=== PATIENT | male | born 1970 | race Native Hawaiian/Other Pacific Islander ===

== ENCOUNTER 2016-12-20 09:49 | Emergency (ER) | payer BC ==
[~2016-12-20] VITALS: Ht 175.3 cm; Wt 116.1 kg
[2016-12-20 10:00] VITALS: TEMP 98.4
[2016-12-20] MEDS ORDERED: AMOX500T5 PO (10:22)
[2016-12-20] MEDS ORDERED: TRAM50TA PO (10:23)
[2016-12-20 11:33] LABS: PLATELET COUNT 259 K/uL (142-355)
[2016-12-20 11:36] LABS: POTASSIUM 3.7 mmol/L (3.6-5.2); SODIUM 134 mmol/L (136-145)
[2016-12-20 13:00] VITALS: BP 160/88
== END 2016-12-20 13:15 | disposition home or self-care (01) ==
LOC: ED 09:49
PROVIDERS: Family Medicine
DX: J34.0 Abscess, furuncle and carbuncle of nose (principal); H00.035 Abscess of left lower eyelid; I88.9 Nonspecific lymphadenitis, unspecified
CPT/HCPCS: 36591; 80053; 80307; 85027; 87040; 96361; 96365; 99284; G0479; J3370